=== PATIENT | male | born 1950 | race Caucasian/White ===

== ENCOUNTER 2016-08-01 08:00 | Outpatient (CLI) | payer MEDICARE, MEDICAID ==
[2016-08-01 19:15] LABS: BASOPHILS # (AUTO) 0.1 10^3/uL (0.0-0.1); BASOPHILS % (AUTO) 1.1 %; EOSINOPHILS # (AUTO) 0.2 10^3/uL (0.0-0.7); EOSINOPHILS % (AUTO) 1.8 %; HCT - HEMATOCRIT 51.3 % (42.0-52.0); HGB - HEMOGLOBIN 17.2 g/dL (14.0-18.0); LYMPHOCYTES % (AUTO) 22.6 %; MEAN CORPUSCULAR HEMOGLOBIN 33.2 pg (27.0-31.0); MEAN CORPUSCULAR HGB CONC 33.6 g/dL (32.0-36.0); MEAN PLATELET VOLUME 8.1 fL (7.4-11.4); MONOCYTES # (AUTO) 0.6 10^3/uL (0.0-1.0); MONOCYTES % (AUTO) 6.9 %; NEUTROPHILS % (AUTO) 67.6 %; NUCLEATED RED BLOOD CELLS AUTO 0.1 /100WBC; RED BLOOD COUNT 5.18 10^6/uL (4.70-6.10); RED CELL DISTRIBUTION WIDTH 14.5 % (12.0-15.0); UNCORRECTED WHITE BLOOD COUNT 8.8 x10^3/uL; WHITE BLOOD COUNT 8.8 x10^3/uL (4.8-10.8)
[2016-08-01 19:23] LABS: ALBUMIN/GLOBULIN RATIO 1.5 (1.0-2.2); BILIRUBIN,TOTAL 0.5 mg/dL (0.2-1.0); CALCIUM 9.4 mg/dL (8.5-10.3); CREATININE 0.6 mg/dL (0.6-1.2); POTASSIUM 4.2 mmol/L (3.5-5.0); TOTAL PROTEIN 6.5 g/dL (6.7-8.2)
== END 2016-08-01 08:01 | disposition home or self-care (01) ==
LOC: LAB.N 08:00
PROVIDERS: ATTEND Nurse Practitioner Gerontology
DX: N40.0 Benign prostatic hyperplasia without lower urinary tract symptoms (principal); Z79.899 Other long term (current) drug therapy
CPT/HCPCS: 36415; 80053; 84153; 85025

== ENCOUNTER 2017-01-25 13:02 | Outpatient (CLI) | payer MEDICARE, MEDICAID ==
--- NOTE | 2017-01-26 11:44 | XRAY Report ---
CHEST X-RAY, TWO VIEWS: 01/25/2017 HISTORY: Dyspnea on exertion. COMPARISON: Chest CT 02/05/2013 and chest x-ray 12/11/2012. Coarse, nonspecific increased markings are present particularly the lung bases, right greater than le ft, worrisome for infiltrate. Upper lungs are clear. No pleural effusion or pneumothorax. Normal h eart size. IMPRESSION: FINDINGS WORRISOME FOR BASILAR INFILTRATE. OTHERWISE, NEGATIVE TWO VIEW CHEST. JOB #: [id number] EXT JOB #:[id number]
== END 2017-01-25 13:03 | disposition home or self-care (01) ==
LOC: DI 13:02
PROVIDERS: ATTEND Family Medicine
DX: R06.9 Unspecified abnormalities of breathing (principal)
CPT/HCPCS: 71020

== ENCOUNTER 2017-02-10 08:58 | Outpatient (CLI) | payer MEDICARE, MEDICAID ==
[2017-02-10] MEDS ORDERED: ALBUTEROL NEB 2.5 MG/3 ML INH PRN (10:25)
[2017-02-10] MEDS ORDERED: ALBUTEROL NEB 2.5 MG/3 ML INH SCH (10:35)
== END 2017-02-10 08:59 | disposition home or self-care (01) ==
LOC: RT 08:58
PROVIDERS: ATTEND Family Medicine
DX: R91.8 Other nonspecific abnormal finding of lung field (principal); F17.210 Nicotine dependence, cigarettes, uncomplicated
CPT/HCPCS: 94060; 94664; J7613

== ENCOUNTER 2017-02-12 13:00 | Outpatient (CLI) | payer MEDICARE, MEDICAID | END 2017-02-12 13:01 | disposition EMS.NT | LOC: EMS 13:00 | PROVIDERS: ATTEND Surgery | DX: S61.211A Laceration without foreign body of left index finger without damage to nail, initial encounter (principal) ==

== ENCOUNTER 2017-02-12 14:27 | Emergency (ER) | payer MEDICARE, MEDICAID ==
--- NOTE | 2017-02-12 15:40 | XRAY Preliminary Report ---
Exam: XR FINGER(S) LT IMPRESSION: 1. Normal alignment of the digit without fracture or dislocation. 2. Mild soft tissue swelling noted, without evidence for radiopaque foreign bodies. [facility] SITE ID: [id number]
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
[2017-02-12] MEDS ORDERED: LIDOCAINE 1% 2 ML VIAL SUBQ STA (15:52)
[2017-02-12] MEDS ORDERED: LIDOCAINE 1% 2 ML VIAL ONE (15:59)
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
[2017-02-12] MEDS ORDERED: TETANUS/DIPHTHERIA/PERTUSSIS 0.5 ML SYRINGE IM ONE (16:08)
[2017-02-12 16:20] VITALS: BP 151/94
== END 2017-02-12 16:30 | disposition home or self-care (01) ==
LOC: ED 14:27
DX: S61.211A Laceration without foreign body of left index finger without damage to nail, initial encounter (principal); W26.0XXA Contact with knife, initial encounter; Y92.009 Unspecified place in unspecified non-institutional (private) residence as the place of occurrence of the external cause; Z23 Encounter for immunization; I10 Essential (primary) hypertension; F17.200 Nicotine dependence, unspecified, uncomplicated; Z96.659 Presence of unspecified artificial knee joint
CPT/HCPCS: 12001; 73140; 90471; 99283

== ENCOUNTER 2017-08-12 17:34 | Emergency (ER) | payer MEDICARE, MEDICAID ==
[2017-08-12 17:42] VITALS: BP 153/113
--- NOTE | 2017-08-12 18:02 | ED Physician Documentation ---
PD HPI HEENT - Stated complaint Stated Complaint: JAW PX - Chief complaint Chief Complaint: Heent - History obtained from History obtained from: Patient - History of Present Illness Timing - onset: Other (He broke his jaw in several places in 1965 while playing with football. Ever since then he has exacerbations of jaw pain where his jaw does not line up and has had jaw dislocations in the past. He had a dental abscess recently that popped on its own and now has increased pain of the right TMJ and feels like everything is not lining up correctly. He is able to open and close his mouth but it hurts more when he closes his mouth.) Review of Systems Constitutional: denies: Fever, Chills Nose: denies: Rhinorrhea / runny nose, Congestion Throat: reports: Dental pain / toothache. denies: Sore throat Cardiac: denies: Chest pain / pressure, Palpitations PD PAST MEDICAL HISTORY - Past Medical History Past Medical History: Yes Cardiovascular: Hypertension Respiratory: Emphysema Endocrine/Autoimmune: None GI: GERD, Hiatal hernia, Colon polyps, Diverticulitis : Benign prostate hypertrophy HEENT: Chronic vision loss Psych: Panic attacks Musculoskeletal: Osteoarthritis, Chronic back pain Derm: None - Past Surgical History Past Surgical History: Yes General: Other Ortho: Knee replacement HEENT: Cataracts - Present Medications Home Medications: Ambulatory Orders Medication Instructions Recorded Confirmed Finasteride [Proscar] 5 mg ORAL DAILY 04/07/14 02/12/17 PARoxetine HCl [Paroxetine HCl] 40 mg ORAL DAILY 04/07/14 02/12/17 Duloxetine HCl 60 mg PO DAILY 02/12/17 02/12/17 Meloxicam 7.5 mg PO DAILY 02/12/17 02/12/17 Clindamycin [Cleocin] 300 mg PO Q6H 10 Days capsule 08/12/17 HYDROcod/ACETAM 5/325 [[place] 5/325] 1 - 2 ea PO Q6H PRN #15 tablet 08/12/17 - Allergies Allergies/Adverse Reactions: Allergies Allergy/AdvReac Type Severity Reaction Status Date / Time ibuprofen AdvReac Rash Verified 02/12/17 14:42 - Social History Does the pt smoke?: Yes Smoking Status: Current every day smoker Does the pt drink ETOH?: No Does the pt have substance abuse?: No - Immunizations Immunizations are current?: Yes PD ED PE NORMAL - Vitals Vital signs reviewed: Yes - General General: Alert and oriented X 3, No acute distress - HEENT HEENT: Other (He has a very tender right TMJ, he is able to open and close his mouth, and there is no obvious asymmetry though and it is not stuck open. He has generally poor dentition and is tender in the area of the right mandibular canine.) - Neck Neck: Supple, no meningeal sign, No bony TTP - Neuro Neuro: Alert and oriented X 3, Normal speech Results - Vitals Vitals: Vital Signs - 24 hr 08/12/17 17:38 Temperature 36.6 C Heart Rate 78 Respiratory 20 Rate Blood Pressure 153/113 H O2 Saturation 98 Oxygen O2 Source Room air Procedures - General procedure General procedure: 1 mL of lidocaine with epinephrine was instilled into the right TMJ with improvement in his pain after verbal consent and alcohol prep. PD MEDICAL DECISION MAKING - Sepsis Event Vital Signs: Vital Signs - 24 hr 08/12/17 17:38 Temperature 36.6 C Heart Rate 78 Respiratory 20 Rate Blood Pressure 153/113 H O2 Saturation 98 Oxygen O2 Source Room air Departure - Departure Disposition: 01 Home, Self Care Clinical Impression: Dental infection TMJ arthralgia Qualifiers: Laterality: right Qualified Code(s): M26.621 - Arthralgia of right temporomandibular joint Condition: Good Record reviewed to determine appropriate education?: Yes Instructions: ED Tooth Pain Prescriptions: Clindamycin [Cleocin] 300 mg PO Q6H 10 Days capsule HYDROcod/ACETAM 5/325 [[place] 5/325] 1 - 2 ea PO Q6H PRN #15 tablet PRN Reason: Pain Comments: It is very important that you follow-up with a dentist. When it comes to dental problems like yours, the emergency department can only offer a short- term solution to your long-term problem. A couple of low cost options for dental care include: [facility] in [place], calls [phone] for an appointment Or [facility] in [place], call [phone] for an appointment. Your blood pressure was elevated today on check into the emergency department. This does not mean that you have hypertension, it is a common phenomenon to come to the emergency department and have elevated blood pressure. I recommend that you see your primary care physician within the week to have it rechecked when you are feeling better.
[2017-08-12] MEDS ORDERED: LIDOCAINE 1%-EPI 1:100000 30 ML MDV ONE (18:08)
== END 2017-08-12 18:08 | disposition home or self-care (01) ==
LOC: ED 17:34
DX: K04.7 Periapical abscess without sinus (principal); M26.621 Arthralgia of right temporomandibular joint; I10 Essential (primary) hypertension; F17.200 Nicotine dependence, unspecified, uncomplicated; Z96.659 Presence of unspecified artificial knee joint
CPT/HCPCS: 96372; 99283